=== PATIENT | male | born 1975 | race Hispanic/Latino ===

== ENCOUNTER 2018-01-20 21:53 | Emergency (ER) | payer OTHER ==
[2018-01-20] MEDS ORDERED: IBUPROFEN 600 MG TABLET ONE (22:23)
[2018-01-20 22:28] LABS: RAPID GROUP A STREP NEGATIVE (NEGATIVE)
== END 2018-01-20 23:00 | disposition home or self-care (01) ==
LOC: EDH 21:53
DX: J11.1 Influenza due to unidentified influenza virus with other respiratory manifestations (principal)
CPT/HCPCS: 87804; 87880